=== PATIENT | male | born 1945 | race Caucasian/White ===

== ENCOUNTER → 2017-04-17 | Outpatient (CLI) | payer OTHER ==
[~2017-04-17] MED LIST: ALPH1COM PO; CYAN50008 PO; DULO30CA2 PO; FLAX1000 PO; GLUC1CAP13 PO; IBUP200T64 PO; INSU100C5 SQ-INSULIN; LISI1TAB5 PO; METH750T2 PO; NPH,100V SC; OXYB5TAB7 PO; PIOG45TA4 PO; PRIMADONE PO; PROP10TA PO; ROPI0.2537 PO; SIMV40TA3 PO; VIT1CAPS16 PO
== END | disposition home or self-care (01) ==
LOC: CFH 13:54
PROVIDERS: ATTEND Nurse Practitioner Primary Care
DX: N62 Hypertrophy of breast (principal)
CPT/HCPCS: 76642; G0204

== ENCOUNTER → 2017-08-17 | Outpatient (CLI) | payer OTHER | LOC: CFH 09:58 | PROVIDERS: ATTEND Urology | DX: K40.90 Unilateral inguinal hernia, without obstruction or gangrene, not specified as recurrent (principal); N20.0 Calculus of kidney; M51.36 Other intervertebral disc degeneration, lumbar region; C61 Malignant neoplasm of prostate | CPT/HCPCS: 74176 ==